=== PATIENT | male | born 1990 | race Caucasian/White ===

== ENCOUNTER 2023-01-23 10:07 | Inpatient (IN) | payer OTHER ==
[2023-01-23 10:39] VITALS: BMI 27.9
[2023-01-23] MEDS ORDERED: BENZONATATE 200 MG CAPSULE PO PRN (11:32)
[2023-01-23] MEDS ORDERED: guaiFENesin 600 MG TABLET.ER (FP) PO PRN (11:32)
[2023-01-23] MEDS ORDERED: NALOXONE HCL (KLOXXADO) 8 MG SPRAY NS PRN (11:32)
[2023-01-23] MEDS ORDERED: NALOXONE HCL 0.4 MG/ML VIAL IM PRN (11:32)
[2023-01-23] MEDS ORDERED: BENZOCAINE/MENTHOL (CHLORASEPTIC ) LOZENGE MM PRN (11:32)
[2023-01-23] MEDS ORDERED: ACETAMINOPHEN 325 MG TABLET (FP) PO PRN (11:32)
[2023-01-23] MEDS ORDERED: MAGNESIUM HYDROX 2400MG/30ML ORAL SUSPENSION 30 ML CUP PO PRN (11:32)
[2023-01-23] MEDS ORDERED: IBUPROFEN 400 MG TABLET (FP) PO PRN (11:32)
[2023-01-23] MEDS ORDERED: LOPERAMIDE HCL 2 MG CAPSULE PO PRN (11:32)
[2023-01-23] MEDS ORDERED: MAG HYDROX/AL HYDROX/SIMETH 30 ML UNIT-DOSE CUP PO PRN (11:32)
[2023-01-23] MEDS ORDERED: POLYETHYLENE GLYCOL (HEALTHYLAX) 3350 17 GM PACKET PO PRN (11:32)
[2023-01-23] MEDS: THIAMINE HCL 100 MG TABLET (FP) PO SCH (21:12)
[2023-01-23] MEDS: MELATONIN 5 MG TABLETS PO SCH (21:12)
[2023-01-23] MEDS: hydrOXYzine PAMOATE 25 MG CAPSULE (FP) PO PRN (21:13)
[2023-01-24] MEDS: PRENATAL VITAMINS W/ FOLIC ACID TABLET (FP) PO SCH (10:20)
[2023-01-24] MEDS ORDERED: TUBERCULIN PPD 5 TU/0.1ML SYRINGE (IN PATIENT USE ONLY) ID ONE (12:00)
[2023-01-24 12:16] LABS: HEMATOCRIT 42.5 % (35.4-49); HEMOGLOBIN 13.7 GM/dL (11.7-16.9); MCH 28.9 pg (25.7-33.7); MCHC 32.2 g/dl (32.0-35.9); MEAN CELL VOLUME 89.8 fl (80-96); MEAN PLT VOLUME 8.6 fl (7.5-11.1); PLATELET COUNT 288 10^3/uL (134-434); RBC 4.74 M/mm3 (4.00-5.60); WHITE BLOOD COUNT 11.6 K/mm3 (4.0-10.0)
[2023-01-24 12:19] LABS: CHLORIDE 107 mmol/L (98-107); POTASSIUM 3.9 mmol/L (3.5-5.1); SODIUM 139 mmol/L (136-145)
[2023-01-24 12:24] LABS: CREATININE 0.8 mg/dL (0.55-1.3)
[2023-01-24 12:25] LABS: ALBUMIN 3.6 g/dl (3.4-5.0); ANION GAP 6 mmol/L (4-13); BLOOD UREA NITROGEN 11.2 mg/dL (7-18); CO2 25 mmol/L (21-32); GLUCOSE,RANDOM 104 mg/dL (74-106); SGOT/AST 15 U/L (15-37)
[2023-01-24 12:26] LABS: BILIRUBIN,TOTAL 0.4 mg/dL (0.2-1); TOT PROT 6.5 g/dl (6.4-8.2)
[2023-01-24 12:27] LABS: ALK PHOS 56 U/L (45-117)
[2023-01-24 12:30] LABS: CALCIUM 9.1 mg/dL (8.5-10.1); SGPT/ALT 27 U/L (13-61)
[2023-01-24 12:44] LABS: SYPHILIS W/ RPR CONF NON-REACTIVE (NONREACTIVE)
[2023-01-24 18:59] LABS: URINE APPEARANCE CLEAR; URINE BILIRUBIN NEGATIVE (NEGATIVE); URINE COLOR DK YELLOW; URINE GLUCOSE (UA) NEGATIVE (NEGATIVE); URINE KETONE TRACE (NEGATIVE); URINE LEUK ESTERASE NEGATIVE (NEGATIVE); URINE NITRITE NEGATIVE (NEGATIVE); URINE PROTEIN NEGATIVE (NEGATIVE)
[2023-01-24] MEDS: THIAMINE HCL 100 MG TABLET (FP) PO SCH (21:04)
[2023-01-24] MEDS: hydrOXYzine PAMOATE 25 MG CAPSULE (FP) PO PRN (21:04)
[2023-01-24] MEDS: MELATONIN 5 MG TABLETS PO SCH (21:04)
[2023-01-25] MEDS: PRENATAL VITAMINS W/ FOLIC ACID TABLET (FP) PO SCH (10:02)
[2023-01-25] MEDS: THIAMINE HCL 100 MG TABLET (FP) PO SCH (21:14)
[2023-01-25] MEDS: hydrOXYzine PAMOATE 25 MG CAPSULE (FP) PO PRN (21:14)
[2023-01-25] MEDS: MELATONIN 5 MG TABLETS PO SCH (21:14)
[2023-01-26] MEDS: PRENATAL VITAMINS W/ FOLIC ACID TABLET (FP) PO SCH (10:18)
[2023-01-26] MEDS: COLLOIDAL OATMEAL 1 BAR EACH TP PRN (11:17)
[2023-01-26] MEDS: hydrOXYzine PAMOATE 25 MG CAPSULE (FP) PO PRN (21:28)
[2023-01-26] MEDS: THIAMINE HCL 100 MG TABLET (FP) PO SCH (21:28)
[2023-01-26] MEDS: MELATONIN 5 MG TABLETS PO SCH (21:28)
[2023-01-27] MEDS: PRENATAL VITAMINS W/ FOLIC ACID TABLET (FP) PO SCH (10:08)
[2023-01-27] MEDS: THIAMINE HCL 100 MG TABLET (FP) PO SCH (21:05)
[2023-01-27] MEDS: MELATONIN 5 MG TABLETS PO SCH (21:05)
[2023-01-27] MEDS: hydrOXYzine PAMOATE 25 MG CAPSULE (FP) PO PRN (21:05)
[2023-01-28] MEDS: PRENATAL VITAMINS W/ FOLIC ACID TABLET (FP) PO SCH (10:15)
[2023-01-28] MEDS: THIAMINE HCL 100 MG TABLET (FP) PO SCH (21:22)
[2023-01-28] MEDS: MELATONIN 5 MG TABLETS PO SCH (21:22)
[2023-01-28] MEDS: hydrOXYzine PAMOATE 25 MG CAPSULE (FP) PO PRN (21:22)
[2023-01-29] MEDS: PRENATAL VITAMINS W/ FOLIC ACID TABLET (FP) PO SCH (10:05)
[2023-01-29] MEDS: MELATONIN 5 MG TABLETS PO SCH (21:08)
[2023-01-29] MEDS: THIAMINE HCL 100 MG TABLET (FP) PO SCH (21:08)
[2023-01-29] MEDS: hydrOXYzine PAMOATE 25 MG CAPSULE (FP) PO PRN (21:08)
[2023-01-30] MEDS: PRENATAL VITAMINS W/ FOLIC ACID TABLET (FP) PO SCH (09:48)
[2023-01-30] MEDS: hydrOXYzine PAMOATE 25 MG CAPSULE (FP) PO PRN ×2 (09:49→21:18)
[2023-01-30] MEDS: COLLOIDAL OATMEAL 1 BAR EACH TP PRN (12:23)
[2023-01-30] MEDS: MELATONIN 5 MG TABLETS PO SCH (21:18)
[2023-01-30] MEDS: THIAMINE HCL 100 MG TABLET (FP) PO SCH (21:18)
[2023-01-31] MEDS: IBUPROFEN 600 MG TABLET (FP) PO PRN (10:00)
[2023-01-31] MEDS: PRENATAL VITAMINS W/ FOLIC ACID TABLET (FP) PO SCH (10:00)
[2023-01-31] MEDS: hydrOXYzine PAMOATE 25 MG CAPSULE (FP) PO PRN ×2 (10:00→21:23)
[2023-01-31] MEDS: THIAMINE HCL 100 MG TABLET (FP) PO SCH (21:23)
[2023-01-31] MEDS: MELATONIN 5 MG TABLETS PO SCH (21:23)
[2023-02-01] MEDS: hydrOXYzine PAMOATE 25 MG CAPSULE (FP) PO PRN ×2 (10:28→21:34)
[2023-02-01] MEDS: PRENATAL VITAMINS W/ FOLIC ACID TABLET (FP) PO SCH (10:28)
[2023-02-01] MEDS: THIAMINE HCL 100 MG TABLET (FP) PO SCH (21:34)
[2023-02-01] MEDS: MELATONIN 5 MG TABLETS PO SCH (21:34)
[2023-02-02] MEDS: PRENATAL VITAMINS W/ FOLIC ACID TABLET (FP) PO SCH (10:00)
[2023-02-02] MEDS: hydrOXYzine PAMOATE 25 MG CAPSULE (FP) PO PRN ×2 (10:01→21:14)
[2023-02-02] MEDS: MELATONIN 5 MG TABLETS PO SCH (21:14)
[2023-02-02] MEDS: THIAMINE HCL 100 MG TABLET (FP) PO SCH (21:14)
[2023-02-03] MEDS: PRENATAL VITAMINS W/ FOLIC ACID TABLET (FP) PO SCH (10:26)
[2023-02-03] MEDS: COLLOIDAL OATMEAL 1 BAR EACH TP PRN (16:43)
[2023-02-03] MEDS: hydrOXYzine PAMOATE 25 MG CAPSULE (FP) PO PRN (21:16)
[2023-02-03] MEDS: MELATONIN 5 MG TABLETS PO SCH (21:16)
[2023-02-03] MEDS: THIAMINE HCL 100 MG TABLET (FP) PO SCH (21:16)
[2023-02-03] MEDS: IBUPROFEN 600 MG TABLET (FP) PO PRN (21:17)
[2023-02-04] MEDS: PRENATAL VITAMINS W/ FOLIC ACID TABLET (FP) PO SCH (09:47)
[2023-02-04] MEDS: hydrOXYzine PAMOATE 25 MG CAPSULE (FP) PO PRN ×2 (09:48→21:15)
[2023-02-04] MEDS: THIAMINE HCL 100 MG TABLET (FP) PO SCH (21:15)
[2023-02-04] MEDS: MELATONIN 5 MG TABLETS PO SCH (21:15)
[2023-02-05] MEDS: PRENATAL VITAMINS W/ FOLIC ACID TABLET (FP) PO SCH (10:10)
[2023-02-05] MEDS: IBUPROFEN 600 MG TABLET (FP) PO PRN (11:01)
[2023-02-05] MEDS: hydrOXYzine PAMOATE 25 MG CAPSULE (FP) PO PRN ×2 (11:01→21:05)
[2023-02-05] MEDS: MELATONIN 5 MG TABLETS PO SCH (21:05)
[2023-02-05] MEDS: THIAMINE HCL 100 MG TABLET (FP) PO SCH (21:05)
[2023-02-06] MEDS: hydrOXYzine PAMOATE 25 MG CAPSULE (FP) PO PRN ×2 (10:00→22:00)
[2023-02-06] MEDS: PRENATAL VITAMINS W/ FOLIC ACID TABLET (FP) PO SCH (10:00)
[2023-02-06] MEDS: IBUPROFEN 600 MG TABLET (FP) PO PRN (14:06)
[2023-02-06] MEDS: COLLOIDAL OATMEAL 1 BAR EACH TP PRN (17:48)
[2023-02-06] MEDS: MELATONIN 5 MG TABLETS PO SCH (21:59)
[2023-02-06] MEDS: THIAMINE HCL 100 MG TABLET (FP) PO SCH (21:59)
[2023-02-07] MEDS: PRENATAL VITAMINS W/ FOLIC ACID TABLET (FP) PO SCH (09:57)
[2023-02-07] MEDS: hydrOXYzine PAMOATE 25 MG CAPSULE (FP) PO PRN ×2 (09:59→21:13)
[2023-02-07] MEDS: IBUPROFEN 600 MG TABLET (FP) PO PRN ×2 (10:00→21:13)
[2023-02-07] MEDS: MELATONIN 5 MG TABLETS PO SCH (21:13)
[2023-02-07] MEDS: THIAMINE HCL 100 MG TABLET (FP) PO SCH (21:13)
[2023-02-08] MEDS: PRENATAL VITAMINS W/ FOLIC ACID TABLET (FP) PO SCH (10:07)
[2023-02-08] MEDS: hydrOXYzine PAMOATE 25 MG CAPSULE (FP) PO PRN ×2 (10:07→21:11)
[2023-02-08] MEDS: IBUPROFEN 600 MG TABLET (FP) PO PRN (11:04)
[2023-02-08] MEDS: BACLOFEN 10 MG TABLET (FP) PO PRN ×2 (12:47→21:11)
[2023-02-08] MEDS: MELATONIN 5 MG TABLETS PO SCH (21:11)
[2023-02-08] MEDS: THIAMINE HCL 100 MG TABLET (FP) PO SCH (21:11)
[2023-02-09] MEDS: hydrOXYzine PAMOATE 25 MG CAPSULE (FP) PO PRN ×2 (09:49→21:21)
[2023-02-09] MEDS: BACLOFEN 10 MG TABLET (FP) PO PRN ×2 (09:49→21:20)
[2023-02-09] MEDS: PRENATAL VITAMINS W/ FOLIC ACID TABLET (FP) PO SCH (09:56)
[2023-02-09] MEDS: COLLOIDAL OATMEAL 1 BAR EACH TP PRN (12:16)
[2023-02-09] MEDS: THIAMINE HCL 100 MG TABLET (FP) PO SCH (21:20)
[2023-02-09] MEDS: MELATONIN 5 MG TABLETS PO SCH (21:20)
[2023-02-10] MEDS: PRENATAL VITAMINS W/ FOLIC ACID TABLET (FP) PO SCH (10:14)
[2023-02-10] MEDS: hydrOXYzine PAMOATE 25 MG CAPSULE (FP) PO PRN ×2 (10:15→21:29)
[2023-02-10] MEDS: MELATONIN 5 MG TABLETS PO SCH (21:29)
[2023-02-10] MEDS: THIAMINE HCL 100 MG TABLET (FP) PO SCH (21:29)
[2023-02-11] MEDS: PRENATAL VITAMINS W/ FOLIC ACID TABLET (FP) PO SCH (09:57)
[2023-02-11] MEDS: hydrOXYzine PAMOATE 25 MG CAPSULE (FP) PO PRN ×2 (09:57→21:08)
[2023-02-11] MEDS: BACLOFEN 10 MG TABLET (FP) PO PRN (21:08)
[2023-02-11] MEDS: THIAMINE HCL 100 MG TABLET (FP) PO SCH (21:08)
[2023-02-11] MEDS: MELATONIN 5 MG TABLETS PO SCH (21:08)
[2023-02-12] MEDS: PRENATAL VITAMINS W/ FOLIC ACID TABLET (FP) PO SCH (10:07)
[2023-02-12] MEDS: hydrOXYzine PAMOATE 25 MG CAPSULE (FP) PO PRN ×2 (10:07→21:20)
[2023-02-12] MEDS: BACLOFEN 10 MG TABLET (FP) PO PRN ×2 (10:07→21:19)
[2023-02-12] MEDS: THIAMINE HCL 100 MG TABLET (FP) PO SCH (21:19)
[2023-02-12] MEDS: MELATONIN 5 MG TABLETS PO SCH (21:20)
[2023-02-13] MEDS: hydrOXYzine PAMOATE 25 MG CAPSULE (FP) PO PRN ×2 (09:53→21:18)
[2023-02-13] MEDS: PRENATAL VITAMINS W/ FOLIC ACID TABLET (FP) PO SCH (09:53)
[2023-02-13] MEDS: BACLOFEN 10 MG TABLET (FP) PO PRN ×2 (11:36→21:18)
[2023-02-13] MEDS: COLLOIDAL OATMEAL 1 BAR EACH TP PRN (11:36)
[2023-02-13] MEDS: MELATONIN 5 MG TABLETS PO SCH (21:18)
[2023-02-13] MEDS: THIAMINE HCL 100 MG TABLET (FP) PO SCH (21:18)
[2023-02-14] MEDS: PRENATAL VITAMINS W/ FOLIC ACID TABLET (FP) PO SCH (10:02)
[2023-02-14] MEDS: hydrOXYzine PAMOATE 25 MG CAPSULE (FP) PO PRN ×2 (13:10→21:22)
[2023-02-14] MEDS: BACLOFEN 10 MG TABLET (FP) PO PRN (13:11)
[2023-02-14] MEDS: MELATONIN 5 MG TABLETS PO SCH (21:22)
[2023-02-14] MEDS: THIAMINE HCL 100 MG TABLET (FP) PO SCH (21:22)
[2023-02-15] MEDS: PRENATAL VITAMINS W/ FOLIC ACID TABLET (FP) PO SCH (10:05)
[2023-02-15] MEDS: BACLOFEN 10 MG TABLET (FP) PO PRN ×2 (12:57→21:10)
[2023-02-15] MEDS: hydrOXYzine PAMOATE 25 MG CAPSULE (FP) PO PRN ×2 (12:57→21:10)
[2023-02-15] MEDS: COLLOIDAL OATMEAL 1 BAR EACH TP PRN (16:22)
[2023-02-15] MEDS: MELATONIN 5 MG TABLETS PO SCH (21:10)
[2023-02-15] MEDS: THIAMINE HCL 100 MG TABLET (FP) PO SCH (21:10)
[2023-02-16] MEDS: PRENATAL VITAMINS W/ FOLIC ACID TABLET (FP) PO SCH (09:53)
[2023-02-16] MEDS: BACLOFEN 10 MG TABLET (FP) PO PRN ×2 (13:39→21:18)
[2023-02-16] MEDS: hydrOXYzine PAMOATE 25 MG CAPSULE (FP) PO PRN ×2 (13:39→21:18)
[2023-02-16] MEDS: THIAMINE HCL 100 MG TABLET (FP) PO SCH (21:18)
[2023-02-16] MEDS: MELATONIN 5 MG TABLETS PO SCH (21:18)
[2023-02-17] MEDS: PRENATAL VITAMINS W/ FOLIC ACID TABLET (FP) PO SCH (09:46)
[2023-02-17] MEDS: hydrOXYzine PAMOATE 25 MG CAPSULE (FP) PO PRN ×2 (13:01→21:33)
[2023-02-17] MEDS: BACLOFEN 10 MG TABLET (FP) PO PRN (13:01)
[2023-02-17] MEDS: THIAMINE HCL 100 MG TABLET (FP) PO SCH (21:33)
[2023-02-17] MEDS: MELATONIN 5 MG TABLETS PO SCH (21:33)
[2023-02-18] MEDS: hydrOXYzine PAMOATE 25 MG CAPSULE (FP) PO PRN ×2 (09:56→21:07)
[2023-02-18] MEDS: BACLOFEN 10 MG TABLET (FP) PO PRN (09:56)
[2023-02-18] MEDS: PRENATAL VITAMINS W/ FOLIC ACID TABLET (FP) PO SCH (09:56)
[2023-02-18] MEDS: MELATONIN 5 MG TABLETS PO SCH (21:07)
[2023-02-18] MEDS: THIAMINE HCL 100 MG TABLET (FP) PO SCH (21:07)
[2023-02-19] MEDS: PRENATAL VITAMINS W/ FOLIC ACID TABLET (FP) PO SCH (09:59)
[2023-02-19] MEDS: THIAMINE HCL 100 MG TABLET (FP) PO SCH (21:16)
[2023-02-19] MEDS: MELATONIN 5 MG TABLETS PO SCH (21:16)
[2023-02-19] MEDS: BACLOFEN 10 MG TABLET (FP) PO PRN (21:16)
[2023-02-19] MEDS: hydrOXYzine PAMOATE 25 MG CAPSULE (FP) PO PRN (21:16)
[2023-02-19] MEDS: COLLOIDAL OATMEAL 1 BAR EACH TP PRN (22:35)
[2023-02-20] MEDS: PRENATAL VITAMINS W/ FOLIC ACID TABLET (FP) PO SCH (10:03)
[2023-02-20] MEDS: hydrOXYzine PAMOATE 25 MG CAPSULE (FP) PO PRN ×2 (10:03→21:10)
[2023-02-20] MEDS: BACLOFEN 10 MG TABLET (FP) PO PRN ×2 (10:04→21:10)
[2023-02-20] MEDS: THIAMINE HCL 100 MG TABLET (FP) PO SCH (21:10)
[2023-02-20] MEDS: MELATONIN 5 MG TABLETS PO SCH (21:10)
[2023-02-21 07:25] VITALS: BP 125/70; PULSE 88; RESP 17; TEMP 97.3
[2023-02-21] MEDS: PRENATAL VITAMINS W/ FOLIC ACID TABLET (FP) PO SCH (09:18)
[2023-02-21] MEDS: hydrOXYzine PAMOATE 25 MG CAPSULE (FP) PO PRN (09:19)
== END 2023-02-21 09:39 | disposition home or self-care (01) | DRG 772 ==
LOC: YASAS 10:07 → Y3W 14:30
PROVIDERS: ADMIT Allergy & Immunology; ATTEND Psychiatry & Neurology Pain Medicine
PROC: HZ42ZZZ Group Counseling for Substance Abuse Treatment, Cognitive-Behavioral (ICD-10-PCS; principal; 2023-01-23)
DX: F14.20 Cocaine dependence, uncomplicated (principal); F12.20 Cannabis dependence, uncomplicated; F32.9 Major depressive disorder, single episode, unspecified; F41.9 Anxiety disorder, unspecified; G47.00 Insomnia, unspecified; M62.838 Other muscle spasm; Z87.09 Personal history of other diseases of the respiratory system; Z87.891 Personal history of nicotine dependence
CPT/HCPCS: 36415; 80053; 80307; 81003; 85027; 86780; 86803; 87635; 87811; 93005; 93010; J0475